=== PATIENT | male | born 1980 | race Two or more races ===

== ENCOUNTER 2016-07-14 12:44 | Emergency (ER) | payer MEDICAID ==
[~2016-07-14] VITALS: Ht 170.2 cm; Wt 83.0 kg
[2016-07-14 13:09] VITALS: BP 115/62
[2016-07-14] MEDS ORDERED: CEPHALEXIN500 MG ORAL (13:11)
[2016-07-14] MEDS ORDERED: IBUPROFEN600 MG ORAL (13:11)
[2016-07-14 13:15] VITALS: BP 115/62
[2016-07-14] MEDS ORDERED: Cephalexin 500mg cap ORAL ONE (13:15)
--- NOTE | 2016-07-14 22:36 | Emergency Room Report ---
History of Present Illness General Chief Complaint: Skin Rash/Abscess Source: Patient (KAMILA KONG) Present Illness HPI The patient is a 35-year-old male presenting for right shoulder pain. The patient states that he had the tattoos placed on the right shoulder recently. The patient has noticed redness and swelling to the area. Pain is described as an 8/10 dull ache it does not radiate from the shoulder. Patient has not tried any medications. Patient denies any symptoms including nausea, vomiting, fever , chills, numbness or tingling (KAMILA KONG) Allergies: Coded Allergies: No Known Allergies (Unverified , 07/14/16) Patient History Past Medical History: see triage record Pertinent Family History: none Reviewed Nursing Documentation: PMH: Agreed, PSxH: Agreed (KAMILA KONG) Nursing Documentation-PMH Past Medical History: No Stated History (KAMILA KONG) Review of Systems All Other Systems: negative except mentioned in HPI (KAMILA KONG) Physical Exam Vital Signs Date Time Temp Pulse Resp B/P Pulse Ox O2 Delivery O2 Flow Rate FiO2 07/14/16 12:58 98.1 85 20 115/62 94 Room Air Sp02 EP Interpretation: reviewed, normal General Appearance: no apparent distress, alert, GCS 15, non-toxic Head: normocephalic, atraumatic Eyes: bilateral eye PERRL, bilateral eye normal inspection ENT: hearing grossly normal, normal pharynx, no angioedema, normal voice Musculoskeletal: gait/station normal, normal range of motion, inflammation, tender - R lateral shoulder Neurologic: alert, oriented x3, responsive, motor strength/tone normal, sensory intact, speech normal Psychiatric: judgement/insight normal, memory normal, mood/affect normal, no suicidal/homicidal ideation Skin: normal turgor, rash - erythema to R lateral shoulder Lymphatic: no adenopathy (KAMILA KONG) Medical Decision Making PA Attestation Dr. Goodman is my supervising physician. Patient management was discussed with my supervising physician (KAMILA KONG) Diagnostic Impression: Primary Impression: Cellulitis ER Course The patient is a 35-year-old male presenting for right shoulder pain. Ddx considered include but not limited to cellulitis, abscess, sprain/strain Physical exam: Afebrile. No apparent distress Right shoulder: There is erythema and tenderness to palpation over the lateral deltoid. Hot to touch. Full active range of motion of the shoulder. Skin is intact. No abscess. No fluctuance. The patient is discharged home with a prescription for Motrin and Keflex and will followup with PMD. ER precautions are given (KAMILA KONG P.A.) ER Course I evaluated this patient in the ED at [facility] with my advanced practice provider (Physician Plaster Molder) colleague, who practices under my general supervision. My impressions concur with the advanced practice provider in regards to their obtained history of present illness, physical exam, general management, diagnosis, and disposition. In particular, I agree with PA-obtained interpretation of imaging, rhythm strip. For the evening and overnight shifts, we do not have the benefit of an in-house Radiologist to review xrays so our interpretation may be limited. Patients are to be discharged only with normal vital signs (or if we discussed a particular exception), a plan for follow-up care, and understand to return to the ED for worsening symptoms. Please see midlevel healthcare providers note for further details. (MICAH GOODMAN M.D.) Last Vital Signs Date Time Temp Pulse Resp B/P Pulse Ox O2 Delivery O2 Flow Rate FiO2 07/14/16 13:15 98.1 20 115/62 94 Room Air 07/14/16 12:58 85 Status: improved (TERCHEMA,KAMILA P.A.) Disposition: HOME, SELF-CARE Condition: Improved Scripts Ibuprofen* (MOTRIN*) 600 Mg Tablet 600 MG ORAL Q6H Y for For Pain, #30 TAB Prov: TERZIAN,KAMILA P.A. 07/14/16 Cephalexin* (KEFLEX*) 500 Mg Capsule 500 MG ORAL EVERY 6 HOURS, #28 CAP Prov: TERZIAN,KAMILA P.A. 07/14/16 Referrals: NOT CHOSEN [facility]/MD,REFERRING (PCP) Patient Instructions: Cellulitis Additional Instructions: I discussed my findings with the patient. All questions and concerns have been answered. Treatment and medication compliance have been addressed. I advised the patient that they need to follow up with PMD in 3-5 days. Return to ED if symptoms worsen, you develop fever/chills, new symptoms arise, or if needed for any reason. Patient verbalized understanding of discharge instructions. KAMILA KONG Jul 14, 2016 22:36 MICAH GOODMAN M.D. Jul 18, 2016 14:15
== END 2016-07-14 13:20 | disposition home or self-care (01) ==
LOC: EMR 13:10
DX: L03.113 Cellulitis of right upper limb (principal)
CPT/HCPCS: 99284

== ENCOUNTER 2017-05-28 20:58 | Emergency (ER) | payer MEDICAID ==
[~2017-05-28] VITALS: Ht 165.1 cm; Wt 79.4 kg
[~2017-05-28 20:58] MED LIST: CEPHALEXIN500 MG ORAL; IBUPROFEN600 MG ORAL
[2017-05-28] MEDS ORDERED: Augmentin 875mg Tab ORAL ONE (21:45)
[2017-05-28] MEDS ORDERED: Tetanus/Diptheria/Pertussis Vaccine 0.5ml Syr IM ONE (21:45)
[2017-05-28] MEDS ORDERED: ACETAMINOPHEN-1 EAC1 ORAL (21:47)
[2017-05-28] MEDS ORDERED: AUGMENTIN 875-1 EAC1 ORAL (21:47)
[2017-05-28 22:10] VITALS: BP 139/82
--- NOTE | 2017-05-29 03:24 | Emergency Room Report ---
History of Present Illness General Chief Complaint: Lower Extremity Injury Source: Patient Present Illness HPI 36-year-old male presents ED for evaluation. Patient states that he got a puncture wound to his left leg approximately one week ago. States that he is having increased pain and swelling to the left leg since. Pain is 8/10, throbbing, nonradiating. Denies fevers or chills. Denies any discharge. Tetanus unknown. No other aggravating relieving factors. Denies any other associated symptoms Allergies: Coded Allergies: No Known Allergies (Unverified , 07/14/16) Patient History Past Medical History: none Past Surgical History: none Pertinent Family History: none Social History: Denies: smoking, alcohol use, drug use Immunizations: UTD Reviewed Nursing Documentation: PMH: Agreed, PSxH: Agreed Nursing Documentation-PMH Past Medical History: No Stated History Review of Systems All Other Systems: negative except mentioned in HPI Physical Exam Vital Signs Date Time Temp Pulse Resp B/P (MAP) Pulse Ox O2 Delivery O2 Flow Rate FiO2 05/28/17 21:14 98.1 80 18 139/82 98 Room Air 98.1 Sp02 EP Interpretation: reviewed, normal General Appearance: no apparent distress, alert, GCS 15, non-toxic Head: normocephalic, atraumatic Eyes: bilateral eye normal inspection, bilateral eye PERRL ENT: hearing grossly normal, normal pharynx, no angioedema, normal voice Neck: full range of motion, supple/symm/no masses Respiratory: chest non-tender, lungs clear, normal breath sounds, speaking full sentences Cardiovascular #1: regular rate, rhythm, no edema Cardiovascular #2: 2+ carotid (R), 2+ carotid (L), 2+ radial (R), 2+ radial (L) , 2+ dorsalis pedis (R), 2+ dorsalis pedis (L) Gastrointestinal: normal bowel sounds, non tender, soft, non-distended, no guarding, no rebound Rectal: deferred Genitourinary: normal inspection, no CVA tenderness Musculoskeletal: back normal, gait/station normal, normal range of motion, non- tender Neurologic: alert, oriented x3, responsive, motor strength/tone normal, sensory intact, speech normal Psychiatric: judgement/insight normal, memory normal, mood/affect normal, no suicidal/homicidal ideation Reflexes: 3+ bicep (R), 3+ bicep (L), 3+ tricep (R), 3+ tricep (L), 3+ knee (R) , 3+ knee (L) Skin: other - mild induration/erythema to LLE. full ROM to L knee Lymphatic: no adenopathy Medical Decision Making Diagnostic Impression: Primary Impression: Puncture wound ER Course Hospital Course 36-year-old M presents ED with left flank pain and swelling status post puncture wound Differential diagnoses include: Cellulitis, dermatitis, insect bite, abscess Clinical course Patient placed on stretcher. After initial history, physical exam reveals a male in no acute distress. On exam there is a site for mild erythema and induration to the L knee just below the patella. There is no fluctuance. mild tenderness. Full range of motion is noted in the Left knee and there is no concern for any signs of infection to the joint. Given antibiotics. Given tdap here. Patient is afebrile, nontoxic. Stable vitals Diagnosis -puncture wound stable and discharged to home with prescription for augmentin. Instructed to followup with PMD. Instructed return to ED if symptoms recur or worsen Last Vital Signs Date Time Temp Pulse Resp B/P (MAP) Pulse Ox O2 Delivery O2 Flow Rate FiO2 05/28/17 21:14 98.1 80 18 139/82 98 Room Air 98.1 Status: improved Disposition: HOME, SELF-CARE Condition: Stable Scripts Acetaminophen With Codeine (T#3) (TYLENOL #3 TAB*) Y Tab 1 TAB ORAL Q8H Y for For Pain, #20 TAB Prov: SURINDER PRATER M.D. 05/28/17 Amoxicillin/Potassium Clav 875-125* (AUGMENTIN 875-125 TABLET*) 1 Each Tablet 1 TAB ORAL TWICE A DAY, #14 TAB Prov: SURINDER PRATER M.D. 05/28/17 Referrals: NOT CHOSEN [facility]/,REFERRING (PCP) Patient Instructions: Puncture Wound, [id number] SURINDER PRATER M.D. May 29, 2017 03:24
== END 2017-05-28 22:10 | disposition home or self-care (01) ==
LOC: EMR 21:25
DX: S81.832A Puncture wound without foreign body, left lower leg, initial encounter (principal); X58.XXXA Exposure to other specified factors, initial encounter; Y92.9 Unspecified place or not applicable; Z23 Encounter for immunization
CPT/HCPCS: 90471; 90715; 99283